=== PATIENT | female | born 1945 | race Caucasian/White ===

== ENCOUNTER 2016-10-21 22:44 | Emergency (ER) | payer SELFPAY ==
[~2016-10-21] VITALS: Ht 152.4 cm; Wt 94.0 kg
[2016-10-21 22:50] VITALS: Ht 152.4 cm; Wt 94.0 kg
== END 2016-10-21 23:03 | disposition left against medical advice (07) ==
LOC: E/R 22:44
DX: Z53.21 Procedure and treatment not carried out due to patient leaving prior to being seen by health care provider (principal)

== ENCOUNTER 2019-02-16 23:41 | Emergency (ER) | payer MEDICARE, OTHER ==
[~2019-02-16] VITALS: Ht 149.9 cm; Wt 84.6 kg
[2019-02-16 23:42] VITALS: Ht 149.9 cm; Wt 84.6 kg
[2019-02-17] MEDS ORDERED: ONDANSETRON 4 MG INJ IV STA (00:21)
[2019-02-17] MEDS ORDERED: morphine 2 MG INJ IV STA (00:21)
[2019-02-17] MEDS ORDERED: SOD CHLORIDE 0.9% 500 ML IV STA (00:21)
[2019-02-17] MEDS ORDERED: ACET1TAB40 PO (02:55)
--- NOTE | 2019-02-17 02:55 | ERD ---
ER Documentation Chief Complaint Chief Complaint AP X'S 1 DAY HPI This is a 73-year-old female with a history of benign neoplasm of the intestine, chronic gastritis who presents to the emergency room for evaluation of abdominal pain. The patient states that she had abdominal pain which he localized to the midportion of abdomen for 1 day. She describes it as a sharp pain with no radiation, no associated chest pain or shortness of breath. The patient has not had any nausea or vomiting or diarrhea. She came to the ER for evaluation of her symptoms. She does have a sales and operations trainee that she sees and has a scheduled appointment in the next week. ROS All systems reviewed and are negative except as per history of present illness. Allergies Allergies: Coded Allergies: Sulfa (Sulfonamide Antibiotics) (Verified Allergy, Unknown, 10/21/16) Physical Exam Vitals Vital Signs Date Temp Pulse Resp B/P (MAP) Pulse Ox O2 O2 Flow FiO2 Time Delivery Rate 02/16/19 97.3 83 20 157/72 98 23:42 (100) Physical Exam Const: No acute distress Head: Atraumatic Eyes: Normal Conjunctiva ENT: Normal External Ears, Nose and Mouth. Neck: Full range of motion. No meningismus. Resp: Clear to auscultation bilaterally Cardio: Regular rate and rhythm, no murmurs Abd: Soft, non tender, non distended. Normal bowel sounds Skin: No petechiae or rashes Back: No midline or flank tenderness Ext: No cyanosis, or edema Neur: Awake and alert Psych: Normal Mood and Affect Result Diagram: 02/17/19 0051 02/17/19 0051 Results 24 hrs Laboratory Tests Test 02/17/19 00:51 02/17/19 01:29 White Blood Count 9.1 10^3/ul Red Blood Count 4.70 10^6/ul Hemoglobin 11.9 g/dl Hematocrit 37.4 % Mean Corpuscular Volume 79.6 fl Mean Corpuscular Hemoglobin 25.3 pg Mean Corpuscular Hemoglobin Concent 31.8 g/dl Red Cell Distribution Width 15.9 % Platelet Count 323 10^3/UL Mean Platelet Volume 9.5 fl Immature Granulocytes % 0.300 % Neutrophils % 48.0 % Lymphocytes % 38.9 % Monocytes % 9.5 % Eosinophils % 2.5 % Basophils % 0.8 % Nucleated Red Blood Cells % 0.0 /100WBC Immature Granulocytes # 0.030 10^3/ul Neutrophils # 4.4 10^3/ul Lymphocytes # 3.6 10^3/ul Monocytes # 0.9 10^3/ul Eosinophils # 0.2 10^3/ul Basophils # 0.1 10^3/ul Nucleated Red Blood Cells # 0.0 10^3/ul Sodium Level 136 mmol/L Potassium Level 4.4 mmol/L Chloride Level 98 mmol/L Carbon Dioxide Level 25 mmol/L Anion Gap 13 Blood Urea Nitrogen 11 mg/dl Creatinine 0.54 mg/dl Est Glomerular Filtrat Rate mL/min mL/min Glucose Level 120 mg/dl Calcium Level 10.1 mg/dl Total Bilirubin 0.5 mg/dl Direct Bilirubin 0.00 mg/dl Indirect Bilirubin 0.5 mg/dl Aspartate Amino Transf (AST/SGOT) 30 IU/L Alanine Aminotransferase (ALT/SGPT) 23 IU/L Alkaline Phosphatase 94 IU/L Total Protein 8.2 g/dl Albumin 4.7 g/dl Globulin 3.50 g/dl Albumin/Globulin Ratio 1.34 Lipase 225 U/L Urine Color YELLOW Urine Clarity CLEAR Urine pH 6.0 Urine Specific [place] 1.012 Urine Ketones NEGATIVE mg/dL Urine Nitrite NEGATIVE mg/dL Urine Bilirubin NEGATIVE mg/dL Urine Urobilinogen NEGATIVE mg/dL Urine Leukocyte Esterase NEGATIVE Desiree/ul Urine Hemoglobin NEGATIVE mg/dL Urine Glucose NEGATIVE mg/dL Urine Total Protein NEGATIVE mg/dl Current Medications Medications Dose Sig/Odalis Start Time Status Last (Trade) Ordered Route PRN Stop Time Admin Dose Reason Admin Sodium 500 ml @ Q1H STAT 02/17/19 DC 02/17/19 Chloride 500 mls/hr IV 00:21 02/17/19 00:55 01:20 Morphine 2 mg ONCE STAT 02/17/19 DC 02/17/19 Sulfate IV 00:21 02/17/19 00:55 (morphine) 00:22 Ondansetron 4 mg ONCE STAT 02/17/19 DC 02/17/19 HCl (Zofran IV 00:21 02/17/19 00:55 Inj) 00:22 Procedures/MDM CT abdomen pelvis without: 1. Slight dependent atelectasis or scarring is noted in both lung bases with slight or lobe bronchiectasis. 2. Hydropic appearing gallbladder with small gallstone. 3. Several splenic cysts are noted. 4. No acute abnormalities are appreciated. This 73-year-old female presents the ER for evaluation of abdominal pain. On my exam the patient had no significant tenderness to palpation. Should her abdominal exam was benign and she was nondistended. Lab work was obtained which is normal, urinalysis is clear, CT of the abdomen pelvis shows no signs of obstruction. The patient was given IV analgesia and on my reevaluation states she is doing better. The patient does have a follow-up with her sales and operations trainee and I advised her to continue that appointment. The patient will be discharged home with a prescription for Tylenol No. 3. She was advised he can return to the ER at any moment for reevaluation she verbalized understanding. Differential diagnoses entertained was broad with potential high acuity. Patient has been evaluated for appendicitis, cholecystitis, and other high risk medical and surgical causes of abdominal pain. Ultimately the patient's evaluation is nondiagnostic. Based on the patient's lack of risk factors, as well as the patient's clinical, laboratory, and imaging data, the patient appears to be low risk for these high risk causes of abdominal pain. Departure Diagnosis: Primary Impression: Abdominal pain Additional Impression: Gastritis Condition: Fair LEYLA LIM DO Feb 17, 2019 02:55
[2019-02-17] MEDS ORDERED: DOCU-144 PO (02:56)
[2019-02-17 03:28] VITALS: BP 101/79; PULSE 88; RESP 18
== END 2019-02-17 03:39 | disposition home or self-care (01) ==
LOC: E/R 23:41
DX: K29.70 Gastritis, unspecified, without bleeding (principal); Z85.038 Personal history of other malignant neoplasm of large intestine
CPT/HCPCS: 36415; 74176; 80053; 81003; 83690; 85025; 96374; 96375; 99285; J2270; J2405; J7040